=== PATIENT | male | born 1980 | race Caucasian/White ===

== ENCOUNTER 2017-09-04 09:23 | Emergency (ER) | payer OTHER ==
[~2017-09-04] VITALS: Ht 177.8 cm; Wt 86.2 kg
[~2017-09-04 09:23] MED LIST: NO MEDS
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
[2017-09-04 10:27] VITALS: BP 132/75
== END 2017-09-04 10:28 | disposition home or self-care (01) ==
LOC: ER 09:30
DX: S09.8XXA Other specified injuries of head, initial encounter (principal); W22.8XXA Striking against or struck by other objects, initial encounter; Y93.89 Activity, other specified; Y92.89 Other specified places as the place of occurrence of the external cause; Y99.8 Other external cause status
CPT/HCPCS: 70160; 99284; A4606; Z7610

== ENCOUNTER 2018-04-02 19:15 | Emergency (ER) | payer OTHER ==
[~2018-04-02] VITALS: Ht 175.3 cm; Wt 83.9 kg
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
--- NOTE | 2018-04-02 20:24 | NUR ---
AVEL CASILLAS AT BEDSIDE FOR EVAL.
[2018-04-02 20:30] LABS: APPEARANCE,URINE Slightly Cloudy (CLEAR); BILIRUBIN,URINE Negative (NEGATIVE); BLOOD, URINE Negative Ery/uL (NEGATIVE); COLOR,URINE Yellow (YELLOW); KETONES,URINE Negative (NEGATIVE); LEUKOCYTE ESTERASE ,URINE Trace (NEGATIVE); NITRITE, URINE Negative (NEGATIVE); PH,URINE 6.5 (5.0-8.0); PROTEIN,URINE Negative (NEGATIVE); UGLUCOSE Negative (NEGATIVE); UROBILINOGEN,URINE 0.2 EU/dL (0.2)
[2018-04-02] MEDS ORDERED: ACETAMINOPHEN ES 500 MG TABLET PO ONE (20:30)
[2018-04-02] MEDS ORDERED: IBUPROFEN 600 MG TABLET PO ONE ×2 (20:30→20:34)
[2018-04-02] MEDS ORDERED: ACETAMINOPHEN ES 500 MG TABLET ONE (20:34)
[2018-04-02 21:01] LABS: RBC,URINE 0-2 /HPF (0-2)
[2018-04-02 21:02] LABS: BACTERIA,URINE None seen /HPF (None Seen); SQUAMOUS EPITHELIAL CELL,UR Few /HPF (None Seen)
--- NOTE | 2018-04-02 21:50 | NUR ---
Patient discharged to home in stable condition. Written and verbal after care instructions given. Patient verbalizes understanding of instruction.
[2018-04-02 21:51] VITALS: BP 115/75
== END 2018-04-02 21:52 | disposition home or self-care (01) ==
LOC: ER 19:15
DX: N50.812 Left testicular pain (principal); N43.3 Hydrocele, unspecified; Z60.2 Problems related to living alone
CPT/HCPCS: 76870; 81001; 99285; A4606; Z7610; 81000-TC

== ENCOUNTER 2019-08-15 09:54 | Emergency (ER) | payer OTHER ==
[~2019-08-15] VITALS: Ht 177.8 cm; Wt 86.2 kg
--- NOTE | 2019-08-15 10:14 | NUR ---
BIB SELF C/O THROAT AND R EAR PAIN STARTED YESTERDAY. NO ACUTE DISTRESS. WILL CONTINUE TO MONITOR ACCORDINGLY
[2019-08-15] MEDS ORDERED: KETOROLAC TROMETHAMINE INJ 30 MG/ML VIAL ONE (10:48)
[2019-08-15] MEDS ORDERED: DEXAMETHASONE SOLN 5 MG/5 ML UDC ONE (10:48)
[2019-08-15 10:56] VITALS: BP 118/70
--- NOTE | 2019-08-15 10:56 | NUR ---
Patient discharged to home in stable condition. Written and verbal after care instructions given. Patient verbalizes understanding of instruction.
[2019-08-15] MEDS ORDERED: KETOROLAC TROMETHAMINE INJ 60 MG/2 ML VIAL IM ONE (11:00)
[2019-08-15] MEDS ORDERED: DEXAMETHASONE 1 MG TABLET PO ONE (11:00)
== END 2019-08-15 10:57 | disposition home or self-care (01) ==
LOC: ER 09:59
DX: J02.9 Acute pharyngitis, unspecified (principal); H92.01 Otalgia, right ear; Z60.2 Problems related to living alone
CPT/HCPCS: 96372; 99283; J1885; J7040; J8540

== ENCOUNTER 2019-08-19 11:51 | Emergency (ER) | payer OTHER ==
[~2019-08-19] VITALS: Ht 177.8 cm; Wt 86.2 kg
[2019-08-19] MEDS ORDERED: ACETAMINOPHEN ES 500 MG TABLET ONE (12:29)
[2019-08-19] MEDS ORDERED: ACETAMINOPHEN 325 MG TABLET PO ONE (12:30)
[2019-08-19 12:34] VITALS: BP 133/87
--- NOTE | 2019-08-19 12:34 | NUR ---
Patient discharged to home in stable condition. Written and verbal after care instructions given. Patient verbalizes understanding of instruction.
== END 2019-08-19 12:35 | disposition home or self-care (01) ==
LOC: ER 11:54
DX: H66.91 Otitis media, unspecified, right ear (principal); Z60.2 Problems related to living alone